=== PATIENT | male | born 1995 | race Caucasian/White ===

== ENCOUNTER → 2018-08-31 | Outpatient (CLI) | payer BC ==
--- NOTE | 2018-08-31 18:15 | RAD ---
Chest, 2 views, 08/31/2018: HISTORY: Cough The heart size and pulmonary vascularity are normal. No pulmonary infiltrate is seen. There is blunting of one of the posterior costophrenic angles suggesting scarring versus a tiny amount of pleural fluid. IMPRESSION: No acute infiltrates. Electronically signed by: Maciej Cavazos MD (08/31/2018 6:12 PM) [facility]
== END | disposition home or self-care (01) ==
LOC: RAD 10:14
PROVIDERS: ATTEND Physician Assistant
DX: R05 Cough (principal)
CPT/HCPCS: 71046